=== PATIENT | male | born 1950 | race African-American/Black ===

== ENCOUNTER 2016-07-23 09:01 | Day surgery (SDC) | payer MEDICAID ==
[2016-07-23] MEDS ORDERED: NS 1,000 ML IV SCH (09:15)
[2016-07-23] MEDS ORDERED: LR 1,000 ML IV SCH (09:30)
--- NOTE | 2016-07-23 09:48 | PDANEPAE ---
ANE History of Present Illness 66yo for Colonoscopy ANE Past Medical History - Cardiovascular History Hx Hypertension: No Hx Arrhythmias: No Hx Chest Pain: No Hx Coronary Artery / Peripheral Vascular Disease: No Hx CHF / Valvular Disease: No Hx Palpitations: No - Pulmonary History Hx COPD: No Hx Asthma/Reactive Airway Disease: No Hx Recent Upper Respiratory Infection: No Hx Oxygen in Use at Home: No - Neurologic History Hx Cerebrovascular Accident: No Hx Seizures: No Hx Dementia: No - Endocrine History Hx Diabetes: No - Renal History Hx Renal Disorders: No - Liver History Hx Hepatic Disorders: No - Neurological & Psychiatric Hx Hx Neurological and Psychiatric Disorders: No - Cancer History Hx Cancer: No - Congenital Disorder History Hx Congenital Disorders: No - GI History Hx Gastrointestinal Disorders: No - Chronic Pain History Chronic Pain: No ANE Review of Systems Review of systems is: negative - Exercise capacity METS (RN): 5 METS ANE Patient History - Allergies Allergies/Adverse Reactions: No Known Allergies Allergy (Unverified 05/15/16 13:41) - Home Medications Home Medications: Herbals/Supplements -Info Only 05/15/16 [Last Taken Unknown] - NPO status NPO Since - Liquids (Date): 07/23/16 NPO Since - Liquids (Time): 04:00 NPO Since - Solids (Date): 07/22/16 NPO Since - Solids (Time): 08:00 - Smoking Hx Smoking Status: Never smoked - Alcohol Use Alcohol Use: Rarely - Family Anes Hx Family Hx Anesthesia Complications: UNK ANE Labs/Vital Signs - Vital Signs Height: 172.72 cm Weight: 71.668 kg ANE Physical Exam - Airway Mallampati Score: Class 2 Mouth exam: normal dental/mouth exam - Pulmonary Pulmonary: clear to auscultation - Cardiovascular Cardiovascular: regular rate and rhythym - ASA Status ASA Status: I
--- NOTE | 2016-07-23 09:48 | PDGENHP ---
History & Physical Outpatient Chief Complaint: screening colonoscopy History of Present Illness: 66 yr old male here for screening colonoscopy. Pertinent Past, Social, Family History: reviewed. Relevant Physical Exam: GEN: NAD. Cardiac: RRR. Lungs: CTA B. Abd: Soft, nt, nd
[2016-07-23] MEDS ORDERED: LR 500 ML IV PRN (09:49)
[2016-07-23] MEDS ORDERED: fentaNYL 100 MCG/2 ML INJ IVP PRN (09:49)
[2016-07-23] MEDS ORDERED: ONDANSETRON 4 MG/2 ML VIAL IVP PRN (09:49)
[2016-07-23] MEDS ORDERED: NALOXONE HCL 0.4 MG/ML INJ IVP PRN (09:49)
[2016-07-23] MEDS ORDERED: ALBUTEROL 3 ML DEYVIAL IH PRN (09:49)
[2016-07-23] MEDS ORDERED: LIDOCAINE 2% 5 ML SDV ONE (09:58)
--- NOTE | 2016-07-23 10:16 | POSTOPPROG ---
Post Op Note Date of Operation: 07/23/16 Surgeon: Tyree Ruiz Pre-op Diagnosis: screening colonoscopy Post-op Diagnosis: same Indication: screening colonoscopy Procedure: colon with snare, colon with bx Inf/Abcess present in the surg proc area at time of surgery?: No
--- NOTE | 2016-07-23 10:33 | POSTANESTH ---
Post Anesthetic Evaluation Cardiovascular Status: Normal, Stable Respiratory Status: Normal, Stable Level of Consciousness/Mental Status: Can Participate in Eval Pain Control: Adequate, Prn Tx Ordered Nausea/Vomiting Control: Adequate, Prn Tx Ordered Complications Possibly Related to Anesthesia: None Noted
--- NOTE | 2016-07-23 10:47 | GPN ---
[f rep st] PROCEDURE NOTE PREPROCEDURE DIAGNOSIS: Screening colonoscopy. POSTPROCEDURE DIAGNOSIS: Screening colonoscopy. MEDICATIONS: Monitored anesthesia care. PROCEDURE: Colonoscopy with snare, colonoscopy with biopsies. INDICATIONS: The patient is a 66-year-old gentleman here for a screening colonoscopy. The risks an d benefits of the procedure were discussed the patient and consent obtained. Risks include, but not limited to, bleeding, perforation, and risks associated with sedation. The patient is ASA Class 1. DESCRIPTION OF PROCEDURE: The adult colonoscope was advanced into the terminal ileum, which appeare d normal. The ileocecal valve, appendiceal orifice, cecum ascending colon, and hepatic flexure appe ared normal. In the transverse colon, there were 2 small polyps. The first measures 4 mm in diamet er, which was removed using cold snare polypectomy. The second polyp measures 1 mm in diameter and was removed using cold biopsy forceps. The splenic flexure, descending colon, sigmoid colon, and re ctum were normal. Retroflexed views of the rectum were normal. IMPRESSION: Two small polyps removed from the transverse colon. Otherwise, normal colonoscopy. RECOMMENDATION: 1. Discharge to home with escort. 2. Advance diet as tolerated. 3. Repeat colonoscopy based on pathology results. Repeat colonoscopy in 5 years if either polyp is found to be adenomatous, otherwise repeat colonoscopy in 10 years is recommended. 4. Follow up on the final biopsy results, which are available within 10 days. Thank you for allowing me to participate in the care of your patient. Please do not hesitate to nayla l with questions. /[id number]/MODL
[2016-07-23 10:59] VITALS: PULSE 40; RESP 12; TEMP 97.3
[2016-07-23 11:26] VITALS: BP 119/87; O2SAT 99
== END 2016-07-23 11:27 | disposition home or self-care (01) ==
LOC: FSGY 09:01
PROVIDERS: ATTEND Internal Medicine Gastroenterology
DX: Z12.11 Encounter for screening for malignant neoplasm of colon (principal); K63.5 Polyp of colon

== ENCOUNTER 2017-05-07 13:51 | Emergency (ER) | payer MEDICAID, MEDICARE, OTHER ==
--- NOTE | 2017-05-07 14:00 | CPEKG ---
Heart Rate: 47 RR Interval: 1277 P-R Interval: 192 QRSD Interval: 74 QT Interval: 444 QTC Interval: 393 P [place]: 39 QRS [place]: 27 T Wave [place]: 22 EKG Severity - OTHERWISE NORMAL ECG - EKG Impression: SINUS BRADYCARDIA Electronically Signed By: Rey Montanez 07-May-2017 15:15:08
[2017-05-07] MEDS ORDERED: ASPIRIN 325 MG TAB PO ONE (14:04)
[2017-05-07 14:16] LABS: PLATELET COUNT 207 10^3/uL (150-400)
--- NOTE | 2017-05-07 15:02 | EDPHY ---
H & P Time Seen by Provider: 05/07/17 14:23 HPI/ROS: Chief complaint. Dizzy, epigastric pain HPI. 67-year-old male presents emergency department and tells me that he was driving about 1:20 p.m.. He suddenly became somewhat dizzy and felt that things were spinning slightly. It was worse with turning his head. The dizziness lasted about 30 min and resolved. He had no focal weakness or paresthesias. No headache or change in his vision. No chest discomfort or trouble breathing. Now he has some burning in the upper abdomen that does not radiate. No radiation to the back. No nausea vomiting or diarrhea. No similar symptoms previously ROS Constitutional. no fever/chills, no weakness Eyes. no problems with vision ENT. no sore throat, no nasal drainage Cardiovascular. no chest pain Respiratory. no shortness of breath, no cough Abdominal. Upper abdominal burning without nausea vomiting or diarrhea . no problems urinating MS. no calf pain/swelling, no neck/back pain, no joint pain Skin. no rash Lymph. no swollen glands Neuro. Dizziness Past Medical/Surgical History: Healthy Social History: , nonsmoker, no alcohol Smoking Status: Never smoked Physical Exam: General Appearance: Alert well male no distress vital signs are stable Eyes: Pupils equal and round no pallor or injection. ENT, Mouth: Mucous membranes are moist. Respiratory: There are no retractions, lungs are clear to auscultation. Cardiovascular: Regular rate and rhythm. Gastrointestinal: Abdomen is soft and nontender, no masses, bowel sounds normal. Neurological: Awake and alert, sensory and motor exams grossly normal. Speech is normal. Cranial nerves are normal. There is no pronator drift. Finger-to- nose is intact bilaterally. Skin: Warm and dry, no rashes. Musculoskeletal: Neck is supple nontender. Extremities symmetrical, full range of motion. Psychiatric: Patient is oriented X 3, there is no agitation. Constitutional: Initial Vital Signs Temperature (C) 36.5 C 05/07/17 13:51 Heart Rate 58 L 05/07/17 13:51 Respiratory Rate 16 05/07/17 13:51 Blood Pressure 154/91 H 05/07/17 13:51 O2 Sat (%) 99 05/07/17 13:51 O2 Delivery Mode Room Air Allergies/Adverse Reactions: No Known Allergies Allergy (Unverified 05/07/17 13:59) Home Medications: Medication Instructions Recorded Herbals/Supplements -Info Only 05/15/16 Medical Decision Making - Diagnostics EKG Interpretation: EKG interpreted by me shows sinus bradycardia with normal interval and axis. QRS is normal there is no significant ST elevation or depression. There is no arrhythmia. The rate is 47 Imaging Results: Imaging Impressions Chest X-Ray 05/07/17 14:05 Impression: No acute pulmonary disease. Chest x-ray reviewed by me is normal Procedures: IV normal saline, monitor ED Course/Re-evaluation: Re-evaluation at 3:05 p.m.. Patient is stable. He and I discussed laboratory evaluation thus far. We discussed treatment plan including recommendation for for her laboratory evaluation in serial troponin. He expresses understanding And agreement. He is given a GI cocktail. Re-evaluation at 3:50 p.m.. Patient notes that his upper abdominal discomfort is much better after the GI cocktail We will redraw troponin at 4:00 p.m. 4:30 p.m. troponins are normal. Patient and I discussed imaging and lab results. He is offered admission but declines and would prefer to be treated as an outpatient. We discussed criteria for return importance of follow-up and further evaluation. He expresses understanding and agreement Differential Diagnosis: Patient had an episode of vertigo and epigastric discomfort that has been relieved by GI cocktail. His neurologic exam is totally normal. He has had no symptoms whatsoever in the emergency department. I considered CVA TIA however he has a completely normal neurologic exam. This could be peripheral labyrinthitis. - Data Points Laboratory Results: Laboratory Results 05/07/17 13:55 05/07/17 13:55 05/07/17 05/07/17 05/07/17 16:02 14:55 13:58 WBC RBC Hgb Hct MCV MCH MCHC RDW Plt Count MPV Neut % (Auto) Lymph % (Auto) [place] % (Auto) Eos % (Auto) Baso % (Auto) Nucleat RBC Rel Count Absolute Neuts (auto) Absolute Lymphs (auto) Absolute Monos (auto) Absolute Eos (auto) Absolute Basos (auto) Absolute Nucleated RBC Immature Gran % Immature Gran # Sodium Potassium Chloride Carbon Dioxide Anion Gap BUN Creatinine Estimated GFR Glucose Calcium Troponin I 0.017 ng/mL ng/mL 0.020 ng/mL ng/mL (0.000-0.034) (0.000-0.034) Lipase 82 IU/L IU/L (23-300) 05/07/17 05/07/17 13:55 13:55 WBC 4.37 10^3/uL 10^3/uL (3.80-9.50) RBC 4.73 10^6/uL 10^6/uL (4.40-6.38) Hgb 14.8 g/dL g/dL (13.7-17.5) Hct 42.5 % % (40.0-51.0) MCV 89.9 fL fL (81.5-99.8) MCH 31.3 pg pg (27.9-34.1) MCHC 34.8 g/dL g/dL (32.4-36.7) RDW 12.5 % % (11.5-15.2) Plt Count 207 10^3/uL 10^3/uL (150-400) MPV 10.7 fL fL (8.7-11.7) Neut % (Auto) 39.3 % % (39.3-74.2) Lymph % (Auto) 51.9 % H % (15.0-45.0) Potter % (Auto) 7.8 % % (4.5-13.0) Eos % (Auto) 0.5 % L % (0.6-7.6) Baso % (Auto) 0.5 % % (0.3-1.7) Nucleat RBC Rel Count 0.0 % % (0.0-0.2) Absolute Neuts (auto) 1.72 10^3/uL 10^3/uL (1.70-6.50) Absolute Lymphs (auto) 2.27 10^3/uL 10^3/uL (1.00-3.00) Absolute Monos (auto) 0.34 10^3/uL 10^3/uL (0.30-0.80) Absolute Eos (auto) 0.02 10^3/uL L 10^3/uL (0.03-0.40) Absolute Basos (auto) 0.02 10^3/uL 10^3/uL (0.02-0.10) Absolute Nucleated RBC 0.00 10^3/uL 10^3/uL (0-0.01) Immature Gran % 0.0 % % (0.0-1.1) Immature Gran # 0.00 10^3/uL 10^3/uL (0.00-0.10) Sodium 146 mEq/L H mEq/L (135-145) Potassium 4.4 mEq/L mEq/L (3.5-5.2) Chloride 104 mEq/L mEq/L (97-110) Carbon Dioxide 30 mEq/l mEq/l (22-31) Anion Gap 12 mEq/L mEq/L (8-16) BUN 12 mg/dL mg/dL (7-23) Creatinine 0.8 mg/dL mg/dL (0.7-1.3) Estimated GFR > 60 Glucose 72 mg/dL mg/dL (70-100) Calcium 9.7 mg/dL mg/dL (8.5-10.4) Troponin I 0.018 ng/mL ng/mL (0.000-0.034) Lipase Medications Given: Discontinued Medications Al Hydroxide/Mg Hydroxide (Maalox Susp) 30 ml PO ONCE ONE Stop: 05/07/17 15:07 Last Admin: 05/07/17 15:09 Dose: 30 ml Aspirin (Aspirin) 325 mg PO EDNOW ONE Stop: 05/07/17 14:05 Last Admin: 05/07/17 14:05 Dose: 325 mg Lidocaine (Lidocaine 2% Viscous) 15 ml PO ONCE ONE Stop: 05/07/17 15:07 Last Admin: 05/07/17 15:09 Dose: 15 ml Departure - Departure Disposition: Home, Routine, Self-Care Clinical Impression: Vertigo Abdominal pain Qualifiers: Abdominal location: epigastric Qualified Code(s): R10.13 - Epigastric pain Condition: Good Instructions: Dizziness (ED) Additional Instructions: Easy activity today. Return for worsening symptoms including further dizziness , chest discomfort or trouble breathing or abdominal pain. Call Dr. Martin in the morning for re-evaluation in the next 1-2 days. Referrals: Patient,NotPresent [Unknown] - As per Instructions Zachary Martin MD [Primary Care Provider] - 1-2 days without fail
[2017-05-07] MEDS ORDERED: LIDOCAINE 2% VISCOUS 15 ML UDCUP PO ONE (15:06)
[2017-05-07] MEDS ORDERED: MAG HYDROX/AL HYDROX/SIMETH 30 ML UDCUP PO ONE (15:06)
[2017-05-07] MEDS ORDERED: HYDROmorphONE/DILAUDID 2 MG/ML INJ ONE (16:16)
[2017-05-07] MEDS ORDERED: ONDANSETRON DISINTEGRATING 4 MG TAB ONE (16:16)
[2017-05-07 17:00] VITALS: BP 135/85
== END 2017-05-07 16:57 | disposition home or self-care (01) ==
LOC: EDUNIT#
DX: R42 Dizziness and giddiness (principal); R10.13 Epigastric pain
CPT/HCPCS: 71046; 93005; 99285; J1170